=== PATIENT | male | born 1970 | race Caucasian/White ===

== ENCOUNTER 2022-04-23 21:50 | Emergency (ER) | payer SELFPAY ==
[~2022-04-23] VITALS: Ht 177.8 cm; Wt 82.0 kg
[2022-04-23] MEDS ORDERED: IBUPROFEN 400MG TABLET PO ONE (22:45)
[2022-04-23] MEDS ORDERED: ACETAMINOPHEN 325MG TABLET PO ONE (22:45)
[2022-04-24] MEDS ORDERED: ACETAMINOPHEN 325MG TABLET PO NR (03:00)
[2022-04-24] MEDS ORDERED: IBUPROFEN 400MG TABLET PO NR (03:00)
[2022-04-24 03:34] VITALS: BP 121/74
== END 2022-04-24 07:42 | disposition home or self-care (01) ==
LOC: ER 21:50
DX: M25.521 Pain in right elbow (principal); M25.571 Pain in right ankle and joints of right foot
CPT/HCPCS: 71045; 73080; 73610; 76705; 99284